=== PATIENT | female | born 1990 | race American Indian/Alaskan Native ===

== ENCOUNTER 2017-05-08 20:17 | Emergency (ER) | payer OTHER ==
[2017-05-08 20:42] VITALS: BP 127/75
== END 2017-05-08 21:13 | disposition left against medical advice (07) ==
LOC: ED 20:17
DX: Z04.3 Encounter for examination and observation following other accident (principal); Z53.21 Procedure and treatment not carried out due to patient leaving prior to being seen by health care provider; V89.2XXA Person injured in unspecified motor-vehicle accident, traffic, initial encounter; Y93.89 Activity, other specified; Y99.8 Other external cause status; Y92.89 Other specified places as the place of occurrence of the external cause

== ENCOUNTER 2019-09-11 11:15 | Emergency (ER) | payer SELFPAY ==
[2019-09-11 11:35] VITALS: BP 134/71
[2019-09-11] MEDS ORDERED: MAGNESIUM SULFATE 0 GM/0 ML BAG IV ONE (16:02)
== END 2019-09-11 11:40 | disposition left against medical advice (07) ==
LOC: ED 11:15
DX: O20.8 Other hemorrhage in early pregnancy (principal); Z53.21 Procedure and treatment not carried out due to patient leaving prior to being seen by health care provider
CPT/HCPCS: J3475

== ENCOUNTER 2020-02-22 11:48 | Inpatient (IN) | payer OTHER ==
[2020-02-22] MEDS ORDERED: TERBUTALINE 1 MG/1 ML INJ SUB-Q PRN (11:49)
[2020-02-22] MEDS ORDERED: LIDOCAINE (2%) 20 MG/1 ML VIAL 20 ML MDV INFILTRATI ONE (11:49)
[2020-02-22] MEDS ORDERED: ACETAMINOPHEN 325 MG TAB PO PRN (11:49)
[2020-02-22] MEDS ORDERED: fentaNYL 100 MCG/2 ML INJ IV PRN (11:49)
[2020-02-22] MEDS ORDERED: NalbUPHINE 10 MG/1 ML INJ IV PRN (11:49)
[2020-02-22] MEDS ORDERED: ePHEDrine SULFATE 50 MG/1 ML INJ IV PRN ×2 (11:49→17:44)
[2020-02-22] MEDS ORDERED: MINERAL OIL 30 ML ORAL LIQD PO PRN (11:49)
[2020-02-22] MEDS ORDERED: OXYTOCIN DRIP 30 UNITS/500 ML BAG IV SCH (12:00)
--- NOTE | 2020-02-22 12:23 | History and Physical Report ---
History of Present Illness Date of examination: 02/22/20 Date of admission: 02/22/20 11:48 Chief complaint: SROM History of present illness: 30 yo, , at 37.3 wks, initiated care with [facility] at 10.5 wks gestation. Her has been complicated by maternal obesity; cigarette smoker; elevated WBC placenta previa (resolved); and Vit D deficiency. She presents to [facility] with reports of leaking fluids since 1100 this am. Reports +FM. Denies VB. Labs: B+, antibody negative; PAP normal; rubella immune; VDRL non-reactive; HBsAg negative; HIV negative; varicella immun; GC/Chlamydia/Trich negative; Vit D 13.9; MSAFP/Multiple markers negative; early 1 hr gtt - 70; 28 wk 1 hr gtt - 119; GBS positive. Past History Past Medical History: no pertinent history Past Surgical History: other (Skin graft - both hands) Family/Genetic History: diabetes (Type II - PGF), hypertension (MGM, PGF, Mother), cancer (Breast Neoplasm - MGM), other (Crohn's disease - Father) Social history: single, smoking (current, every day), full code. denies: alcohol abuse, prescription drug abuse, IV drug use - Obstetrical History Expected Date of Delivery: 03/11/20 Actual Gestation: 37 Week(s) 3 Day(s) : 2 Para: 0 Hx # Term Pregnancies: 0 Number of Pregnancies: 0 Spontaneous Abortions: 1 Induced : 0 Number of Living Children: 0 Medications and Allergies Allergies Allergy/AdvReac Type Severity Reaction Status Date / Time Penicillins Allergy Swelling Verified 02/22/20 12:19 Sulfa (Sulfonamide Allergy Hives Verified 02/22/20 12:19 Antibiotics) Home Medications Medication Instructions Recorded Confirmed Last Taken Type Vitamin 1 tab PO DAILY 02/22/20 02/22/20 02/22/20 History Tylenol 2 tab PO PRN PRN 02/22/20 02/22/20 02/21/20 History Active Meds: Active Medications Acetaminophen (Tylenol) 650 mg PO Q4H PRN PRN Reason: Pain, Mild (1-3) Ephedrine Sulfate (Ephedrine Sulfate) 10 mg IV Q2M PRN PRN Reason: Hypotension Fentanyl (Sublimaze) 100 mcg IV Q2H PRN PRN Reason: Pain,Severe (7-10) LABOR PAIN Oxytocin/Sodium Chloride (Pitocin/Ns 20 Unit/1000ml Drip) 20 units in 1,000 mls @ 125 mls/hr IV DIRECT SO Oxytocin/Sodium Chloride (Pitocin/Ns 30 Unit/500ml) 30 units in 500 mls @ 2 mls/hr IV TITR SO; Protocol Lactated Ringer's (Lactated Ringers) 1,000 mls @ 125 mls/hr IV DIRECT OS Cefazolin Sodium 2 gm/ Sodium (Chloride) 100 mls @ 200 mls/hr IV ONCE ONE; Protocol Stop: 02/22/20 12:18 Cefazolin Sodium (Ancef/Ns 1 Gm/50 Ml) 1 gm in 50 mls @ 100 mls/hr IV Q8HR SO; Protocol Lidocaine (Xylocaine 2%) 20 ml INFILTRATI ONCE ONE Stop: 02/22/20 11:50 Mineral Oil (Mineral Oil) 30 ml PO QHS PRN PRN Reason: Constipation Nalbuphine HCl (Nalbuphine) 10 mg IV Q2H PRN PRN Reason: Pain, Moderate (4-6) Ondansetron HCl (Zofran) 4 mg IV Q8H PRN PRN Reason: Nausea And Vomiting Terbutaline Sulfate (Brethine) 0.25 mg SUB-Q ONCE PRN PRN Reason: Hyperstimulation/Hypertonicity Review of Systems All systems: negative Genitourinary: leakage of fluid (since 1100 today) - Physical Exam Breasts: Positive: normal Cardiovascular: Regular rate Lungs: Positive: Normal air movement Abdomen: Positive: soft, other (gravid) Vagina: Positive: other (grossly ruptured, clear fluids) Uterus: Positive: enlarged (S=D) - Obstetrical FHR: category 1 Uterine Contraction Monitor Mode: External Cervical Dilatation: 2 (per RN) Cervical Effacement Percentage: 50 station: -2 Uterine Contraction Frequency (min): 5-7 Uterine Contraction Pattern: Irregular Uterine Tone Measurement Phase: Resting Uterine Contraction Intensity: Mild Results All other labs normal. Assessment and Plan - Patient Problems (1) SROM (spontaneous rupture of membranes) Current Visit: Yes Status: Acute Plan to address problem: Admit to L & D Initiate Cytotec 50mg po q 4hrs Pain meds as ordered Anticipate (2) Maternal obesity affecting , antepartum Current Visit: Yes Status: Acute (3) Cigarette smoker Current Visit: Yes Status: Acute
[2020-02-22] MEDS ORDERED: miSOPROStol 25 MCG TAB PO PRN (12:44)
[2020-02-22 13:14] LABS: Hematocrit 33.8 % (30.3-42.9); Hemoglobin 11.4 gm/dl (10.1-14.3); Mean Corpuscular HGB Conc 34 % (30-34); Mean Corpuscular Volume 89 fl (79-97); Platelet Count 255 K/mm3 (140-440); Red Blood Count 3.82 M/mm3 (3.65-5.03); Red Cell Distribution Width 14.1 % (13.2-15.2)
[2020-02-22] MEDS: LACTATED RINGERS 1,000 ML IV SCH (13:38)
[2020-02-22] MEDS: ONDANSETRON 4 MG/2 ML INJ IV PRN ×2 (14:07→15:05)
[2020-02-22] MEDS ORDERED: BUTORPHANOL 2 MG/1 ML INJ IV PRN (15:08)
[2020-02-22] MEDS ORDERED: BUTORPHANOL 2 MG/1 ML INJ ONE (15:08)
--- NOTE | 2020-02-22 16:43 | Progress Note ---
Assessment and Plan - Patient Problems (1) SROM (spontaneous rupture of membranes) Current Visit: Yes Status: Acute Plan to address problem: Admit to L & D Continue Cytotec 50mg po q 4hrs x 3 doses Epidural placement Anticipate (2) Maternal obesity affecting , antepartum Current Visit: Yes Status: Acute (3) Cigarette smoker Current Visit: Yes Status: Acute Subjective - Subjective Date of service: 02/22/20 Principal diagnosis: SROM Interval history: 30 yo, , at 37.3 wks, initiated care with [facility] at 10.5 wks gestation. Her has been complicated by maternal obesity; cigarette smoker; elevated WBC placenta previa (resolved); and Vit D deficiency. She presents to [facility] with reports of leaking fluids since 1100 this am. Reports +FM. Denies VB. Labs: B+, antibody negative; PAP normal; rubella immune; VDRL non-reactive; HBsAg negative; HIV negative; varicella immun; GC/Chlamydia/Trich negative; Vit D 13.9; MSAFP/Multiple markers negative; early 1 hr gtt - 70; 28 wk 1 hr gtt - 119; GBS positive. Patient reports: new complaints (requesting epidural, IV pain meds not working), loss of fluid, movement normal, contractions (painful ctxs) Objective - Vital Signs Vital Signs: Vital Signs - 12hr 02/22/20 02/22/20 02/22/20 12:12 12:13 12:17 Temperature Pulse Rate 91 H 93 H 100 H Respiratory Rate Blood Pressure 120/71 Blood Pressure [Right] O2 Sat by Pulse 98 98 Oximetry 02/22/20 02/22/20 02/22/20 12:22 12:25 12:27 Temperature Pulse Rate 100 H 103 H 109 H Respiratory Rate Blood Pressure Blood Pressure [Right] O2 Sat by Pulse 99 93 98 Oximetry 02/22/20 02/22/20 02/22/20 12:32 12:37 12:42 Temperature Pulse Rate 94 H 111 H 103 H Respiratory Rate Blood Pressure Blood Pressure [Right] O2 Sat by Pulse 98 98 97 Oximetry 02/22/20 02/22/20 02/22/20 12:47 12:52 12:57 Temperature Pulse Rate 100 H 105 H 91 H Respiratory Rate Blood Pressure Blood Pressure [Right] O2 Sat by Pulse 98 97 98 Oximetry 02/22/20 02/22/20 02/22/20 13:02 13:07 13:12 Temperature Pulse Rate 91 H 94 H 96 H Respiratory Rate Blood Pressure Blood Pressure [Right] O2 Sat by Pulse 98 97 98 Oximetry 02/22/20 02/22/20 02/22/20 13:15 13:17 13:22 Temperature 98.0 F Pulse Rate 90 96 H 97 H Respiratory 20 Rate Blood Pressure 133/62 Blood Pressure 133/62 [Right] O2 Sat by Pulse 99 99 98 Oximetry 02/22/20 02/22/20 02/22/20 13:27 13:38 13:43 Temperature Pulse Rate 103 H 116 H 104 H Respiratory Rate Blood Pressure Blood Pressure [Right] O2 Sat by Pulse 99 98 98 Oximetry 02/22/20 02/22/20 02/22/20 13:48 13:53 13:58 Temperature Pulse Rate 104 H 114 H 95 H Respiratory Rate Blood Pressure Blood Pressure [Right] O2 Sat by Pulse 98 98 100 Oximetry 02/22/20 02/22/20 02/22/20 14:03 14:08 14:13 Temperature Pulse Rate 146 H 127 H 109 H Respiratory Rate Blood Pressure Blood Pressure [Right] O2 Sat by Pulse 98 97 99 Oximetry 02/22/20 02/22/20 02/22/20 14:18 14:22 14:23 Temperature Pulse Rate 102 H 119 H 95 H Respiratory Rate Blood Pressure Blood Pressure [Right] O2 Sat by Pulse 95 92 99 Oximetry 02/22/20 02/22/20 02/22/20 14:28 14:33 14:38 Temperature Pulse Rate 120 H 95 H 118 H Respiratory Rate Blood Pressure Blood Pressure [Right] O2 Sat by Pulse 97 100 95 Oximetry - Exam Breasts: deferred Cardiovascular: Regular rate Lungs: Normal air movement Abdomen: Present: other FHR: category 1 Uterine Contraction Monitor Mode: External Cervical Dilatation: 3 (per RN) Cervical Effacement Percentage: 80 station: -2 Uterine Contraction Frequency (min): 2-3 Uterine Contraction Pattern: Irregular Uterine Tone Measurement Phase: Resting Uterine Contraction Intensity: Moderate Extremities: normal Deep Tendon Reflex Grade: Normal +2 - Labs Labs: Abnormal Labs 02/22/20 13:00 WBC 14.4 H Laboratory Results - last 24 hr 02/22/20 02/22/20 13:00 13:00 WBC 14.4 H RBC 3.82 Hgb 11.4 Hct 33.8 MCV 89 MCH 30 MCHC 34 RDW 14.1 Plt Count 255 Blood Type B POSITIVE Antibody Screen Negative
[2020-02-22] MEDS ORDERED: NALOXONE 2 MG/2 ML INJ IV PRN (17:44)
--- NOTE | 2020-02-22 17:45 | Anesthesia Consultation ---
Anesthesia Consult and Med Hx Date of service: 02/22/20 - Airway Anesthetic Teeth Evaluation: Good ROM Head & Neck: Adequate Mental/Hyoid Distance: Adequate Mallampati Class: Class II Intubation Access Assessment: Probably Good - Pulmonary Exam CTA: Yes - Cardiac Exam Cardiac Exam: RRR - Pre-Operative Health Status ASA Pre-Surgery Classification: ASA3 Proposed Anesthetic Plan: Epidural - Pulmonary Hx Smoking: Yes Hx Asthma: No - Cardiovascular System Hx Hypertension: No - Central Nervous System Hx Seizures: No Hx Psychiatric Problems: No - Endocrine Hx Renal Disease: No Hx Hypothyroidism: No Hx Hyperthyroidism: No - Hematic Hx Anemia: Yes Hx Sickle Cell Disease: No - Other Systems Hx Alcohol Use: No Hx Obesity: Yes
--- NOTE | 2020-02-22 17:48 | Progress Note ---
Labor Epidural - Labor Epidural Start Time: 16:45 Stop Time: 17:02 Performed by:: DEANA BRO Procedure: Patient is requesting epidural for labor pain. H&P, and labs reviewed. Procedure explained, questions answered, consent obtained. Patient in sitting position with blood pressure cuff and pulse ox on and working. Timeout performed immediately before start of procedure. Sterile betadine prep/drape. 3 mL 1% lidocaine skin wheal at L[3]-L[4]. 18-gauge Touhy epidural needle advanced to [id number] with saline at 10 cm. Epidural dexmedetomidine [30] mcg administered. Epidural catheter advanced to 15 cm, negative aspiration for blood and csf, negative test dose 3 ml 1.5% lidocaine with epinephrine. Sterile steri-strips and tegaderm applied, followed by tape reinforcement. Patient tolerated procedure well.
[2020-02-22] MEDS ORDERED: fentaNYL-BUPIV 2 MCG/ML-0.125% 200 MCG/100 ML BAG EPIDURAL SCH (18:00)
[2020-02-22] MEDS: OXYTOCIN 20 UNIT/1000ML DRIP 20 UNITS/1,000 ML BAG IV SCH ×2 (19:05→20:06)
--- NOTE | 2020-02-22 19:34 | Progress Note ---
Subjective Principal diagnosis: SROM Interval history: Spontaneous vaginal delivery without episiotomy under epidural anesthesia. Healthy female APGARS 8/9 weighing 2169 grams. Placenta was spontaneous, intact, grossly normal. 1st degree perineal laceration repaired with 3-0 Vicryl. EBL 200 ml Objective - Constitutional Vitals: Vital Signs - 12hr 02/22/20 02/22/20 02/22/20 12:12 12:13 12:17 Temperature Pulse Rate 91 H 93 H 100 H Respiratory Rate Blood Pressure 120/71 Blood Pressure [Right] O2 Sat by Pulse 98 98 Oximetry 02/22/20 02/22/20 02/22/20 12:22 12:25 12:27 Temperature Pulse Rate 100 H 103 H 109 H Respiratory Rate Blood Pressure Blood Pressure [Right] O2 Sat by Pulse 99 93 98 Oximetry 02/22/20 02/22/20 02/22/20 12:32 12:37 12:42 Temperature Pulse Rate 94 H 111 H 103 H Respiratory Rate Blood Pressure Blood Pressure [Right] O2 Sat by Pulse 98 98 97 Oximetry 02/22/20 02/22/20 02/22/20 12:47 12:52 12:57 Temperature Pulse Rate 100 H 105 H 91 H Respiratory Rate Blood Pressure Blood Pressure [Right] O2 Sat by Pulse 98 97 98 Oximetry 02/22/20 02/22/20 02/22/20 13:02 13:07 13:12 Temperature Pulse Rate 91 H 94 H 96 H Respiratory Rate Blood Pressure Blood Pressure [Right] O2 Sat by Pulse 98 97 98 Oximetry 02/22/20 02/22/20 02/22/20 13:15 13:17 13:22 Temperature 98.0 F Pulse Rate 90 96 H 97 H Respiratory 20 Rate Blood Pressure 133/62 Blood Pressure 133/62 [Right] O2 Sat by Pulse 99 99 98 Oximetry 02/22/20 02/22/20 02/22/20 13:27 13:38 13:43 Temperature Pulse Rate 103 H 116 H 104 H Respiratory Rate Blood Pressure Blood Pressure [Right] O2 Sat by Pulse 99 98 98 Oximetry 02/22/20 02/22/20 02/22/20 13:48 13:53 13:58 Temperature Pulse Rate 104 H 114 H 95 H Respiratory Rate Blood Pressure Blood Pressure [Right] O2 Sat by Pulse 98 98 100 Oximetry 02/22/20 02/22/20 02/22/20 14:03 14:08 14:13 Temperature Pulse Rate 146 H 127 H 109 H Respiratory Rate Blood Pressure Blood Pressure [Right] O2 Sat by Pulse 98 97 99 Oximetry 02/22/20 02/22/20 02/22/20 14:18 14:22 14:23 Temperature Pulse Rate 102 H 119 H 95 H Respiratory Rate Blood Pressure Blood Pressure [Right] O2 Sat by Pulse 95 92 99 Oximetry 02/22/20 02/22/20 02/22/20 14:28 14:33 14:38 Temperature Pulse Rate 120 H 95 H 118 H Respiratory Rate Blood Pressure Blood Pressure [Right] O2 Sat by Pulse 97 100 95 Oximetry 02/22/20 02/22/20 02/22/20 16:44 16:45 16:47 Temperature Pulse Rate 91 H 114 H 104 H Respiratory Rate Blood Pressure 127/77 Blood Pressure [Right] O2 Sat by Pulse 97 81 L Oximetry 02/22/20 02/22/20 02/22/20 16:49 16:50 16:54 Temperature Pulse Rate 113 H 76 85 Respiratory Rate Blood Pressure 127/65 134/71 Blood Pressure [Right] O2 Sat by Pulse 95 Oximetry 02/22/20 02/22/20 02/22/20 16:55 17:00 17:05 Temperature Pulse Rate 105 H 107 H 111 H Respiratory Rate Blood Pressure 130/69 129/86 Blood Pressure [Right] O2 Sat by Pulse 98 97 98 Oximetry 02/22/20 02/22/20 02/22/20 17:08 17:10 17:15 Temperature Pulse Rate 129 H 144 H 101 H Respiratory Rate Blood Pressure Blood Pressure [Right] O2 Sat by Pulse 70 L 85 100 Oximetry 02/22/20 02/22/20 02/22/20 17:20 17:25 17:29 Temperature Pulse Rate 100 H 108 H 114 H Respiratory Rate Blood Pressure 114/57 Blood Pressure [Right] O2 Sat by Pulse 100 100 Oximetry 02/22/20 02/22/20 02/22/20 17:30 17:31 17:35 Temperature Pulse Rate 109 H 114 H 92 H Respiratory Rate Blood Pressure 103/66 Blood Pressure [Right] O2 Sat by Pulse 99 79 L 99 Oximetry 02/22/20 02/22/20 02/22/20 17:40 17:45 17:50 Temperature Pulse Rate 103 H 108 H 98 H Respiratory Rate Blood Pressure 109/67 111/61 Blood Pressure [Right] O2 Sat by Pulse 97 100 Oximetry 02/22/20 02/22/20 02/22/20 17:56 17:59 18:04 Temperature Pulse Rate 91 H 112 H 111 H Respiratory Rate Blood Pressure 144/113 120/76 94/53 Blood Pressure [Right] O2 Sat by Pulse Oximetry 02/22/20 02/22/20 02/22/20 18:10 18:14 18:19 Temperature Pulse Rate 110 H 93 H 104 H Respiratory Rate Blood Pressure 121/64 109/54 111/55 Blood Pressure [Right] O2 Sat by Pulse Oximetry 02/22/20 02/22/20 02/22/20 18:21 18:24 18:30 Temperature Pulse Rate 119 H 54 L 102 H Respiratory Rate Blood Pressure 113/59 127/82 Blood Pressure [Right] O2 Sat by Pulse 98 Oximetry 02/22/20 02/22/20 02/22/20 18:34 18:39 18:44 Temperature Pulse Rate 100 H 89 96 H Respiratory Rate Blood Pressure 103/55 105/57 106/57 Blood Pressure [Right] O2 Sat by Pulse Oximetry 02/22/20 02/22/20 02/22/20 18:50 18:54 19:09 Temperature Pulse Rate 111 H 99 H 107 H Respiratory Rate Blood Pressure 111/64 107/51 88/50 Blood Pressure [Right] O2 Sat by Pulse Oximetry 02/22/20 02/22/20 02/22/20 19:14 19:19 19:24 Temperature Pulse Rate 100 H 94 H 101 H Respiratory Rate Blood Pressure 89/49 88/54 91/55 Blood Pressure [Right] O2 Sat by Pulse Oximetry - Labs CBC & Chem 7: 02/22/20 13:00 Labs: Abnormal lab results 02/22/20 Range/Units 13:00 WBC 14.4 H (4.5-11.0) K/mm3 Medications & Allergies - Medications Allergies/Adverse Reactions: Allergies Penicillins Allergy (Verified 02/22/20 12:19) Swelling Throat itching ans swelling Sulfa (Sulfonamide Antibiotics) Allergy (Verified 02/22/20 12:19) Hives Home Medications: Home Medications Medication Instructions Recorded Confirmed Last Taken Type Vitamin 1 tab PO DAILY 02/22/20 02/22/20 02/22/20 History Tylenol 2 tab PO PRN PRN 02/22/20 02/22/20 02/21/20 History Active Medications: Generic Name Dose Route Start Last Admin Trade Name Jonathanq PRN Reason Stop Dose Admin Acetaminophen 650 mg 02/22/20 11:49 Tylenol PO Q4H PRN Pain, Mild (1-3) Butorphanol Tartrate 2 mg 02/22/20 15:08 02/22/20 15:10 Stadol IV 2 mg Q2H PRN Administration Labor Pain Ephedrine Sulfate 10 mg 02/22/20 11:49 Ephedrine Sulfate IV Q2M PRN Hypotension Ephedrine Sulfate 10 mg 02/22/20 17:44 Ephedrine Sulfate IV Q2M PRN Hypotension Fentanyl 100 mcg 02/22/20 11:49 02/22/20 14:03 Sublimaze IV 100 mcg Q2H PRN Administration Pain,Severe (7-10) LABOR PAIN Oxytocin/Sodium Chloride 20 units in 1,000 mls @ 125 mls/hr 02/22/20 12:00 Pitocin/Ns 20 Unit/1000ml Drip IV DIRECT SO Lactated Ringer's 1,000 mls @ 125 mls/hr 02/22/20 12:00 02/22/20 13:38 Lactated Ringers IV 125 mls/hr DIRECT SO Administration Cefazolin Sodium 1 gm in 50 mls @ 100 mls/hr 02/22/20 20:00 Ancef/Ns 1 Gm/50 Ml IV Q8HR SO Protocol Fentanyl/Bupivacaine/Sodium Chlor 200 mcg in 100 mls @ 12 mls/hr 02/22/20 18:00 02/22/20 17:58 Fentanyl-Bupiv 2 Mcg/Ml-0.125% EPIDURAL 12 mls/hr TITR SO Administration Protocol Mineral Oil 30 ml 02/22/20 11:49 Mineral Oil PO QHS PRN Constipation Misoprostol 50 mcg 02/22/20 12:44 02/22/20 13:54 Cytotec PO 50 mcg Q4H PRN Administration Labor augmentation Nalbuphine HCl 10 mg 02/22/20 11:49 Nalbuphine IV Q2H PRN Pain, Moderate (4-6) Naloxone HCl 0.2 mg 02/22/20 17:44 Naloxone IV Q5M PRN Respiratory sedation Ondansetron HCl 4 mg 02/22/20 11:49 02/22/20 15:05 Zofran IV 4 mg Q8H PRN Administration Nausea And Vomiting Terbutaline Sulfate 0.25 mg 02/22/20 11:49 Brethine SUB-Q ONCE PRN Hyperstimulation/Hypertonicity
[2020-02-22] MEDS ORDERED: diphenhydrAMINE 25 MG CAP PO PRN (19:35)
[2020-02-22] MEDS ORDERED: LANOLIN/ZINC/DIMETHICONE (LANSINOH) 7 GM TP PRN (19:35)
[2020-02-22] MEDS ORDERED: PROMETHAZINE 25 MG RECT SUPP PR PRN (19:35)
[2020-02-22] MEDS ORDERED: MAGNESIUM HYDROXIDE (MOM) ORAL LIQD UDC PO PRN (19:35)
[2020-02-22] MEDS ORDERED: PROMETHAZINE 25 MG TAB PO PRN (19:35)
[2020-02-22] MEDS ORDERED: ONDANSETRON 4 MG/2 ML INJ IV PRN (19:35)
[2020-02-22] MEDS: IBUPROFEN 600 MG TAB PO SCH (20:05)
[2020-02-22] MEDS: WITCH HAZEL/ GLYCERIN PAD TP PRN (21:52)
[2020-02-22] MEDS: ceFAZolin/NS 1 GM/50 ML 1 GM/50 ML BAG IV SCH ×2 (21:53→23:12)
[2020-02-22] MEDS: HYDROcodone/ACETAMINOPHEN 5-325 MG TAB PO PRN (22:01)
[2020-02-23] MEDS: ceFAZolin/NS 1 GM/50 ML 1 GM/50 ML BAG IV SCH (05:41)
[2020-02-23] MEDS: HYDROcodone/ACETAMINOPHEN 5-325 MG TAB PO PRN (05:42)
[2020-02-23] MEDS: IBUPROFEN 600 MG TAB PO SCH ×4 (06:10→20:34)
--- NOTE | 2020-02-23 09:07 | Post Anesthesia Evaluation ---
- Post Anesthesia Evaluation Patient Participated: Yes Airway Patent: Yes Stable Respiratory Function: Yes Nausea/Vomiting: No Temp > 96.8F: Yes Pain Manageable: Yes Adequeate Hydration: Yes Anesthesia Complications: Yes (PDPH being treated with fiorcet and neostigmine/atropine) Block Receding Appropriately: Yes
[2020-02-23] MEDS: BUTALB/ACETAMINOPHEN/CAFFEINE TAB PO PRN ×3 (09:31→20:46)
[2020-02-23] MEDS: PRENATAL VIT27-FE FUMARATE-FOLIC ACID VIT TAB PO SCH (10:22)
[2020-02-23] MEDS: NEOSTIGMINE 2 MG, ATROPINE 1 MG in SODIUM CHLORIDE 0.9% 100 ML IV SCH ×2 (10:23→19:50)
[2020-02-23] MEDS: LACTATED RINGERS 1,000 ML IV SCH (10:23)
--- NOTE | 2020-02-23 10:53 | Progress Note ---
Assessment and Plan A: PP Day #1 Epidural Head and Neck Pain P: Follow Routine Orders Anesthesia management of SWANSON (Fioricet & Atropine) Subjective - Subjective Date of service: 02/23/20 Principal diagnosis: SROM Patient reports: appetite normal, voiding normally, pain poorly controlled (Reports of Epidural SWANSON with Intense Neck Pain, Rates Pain 10/10), ambulating normally Gilliam: doing well, bottle feeding Objective - Vital Signs Latest vital signs: Vital Signs Temp Pulse Resp BP BP Pulse Ox 02/23/20 08:10 98.1 F 69 18 96/52 95 02/23/20 06:42 18 02/23/20 05:42 18 02/23/20 05:13 18 02/23/20 04:13 18 02/22/20 23:01 18 02/22/20 22:01 18 02/22/20 21:05 18 02/22/20 21:02 98.6 F 75 18 119/73 96 02/22/20 20:13 98 F 98 H 22 115/65 97 02/22/20 20:04 86 115/65 02/22/20 19:29 111 H 144/63 02/22/20 19:24 101 H 91/55 02/22/20 19:19 94 H 88/54 02/22/20 19:14 100 H 89/49 02/22/20 19:09 107 H 88/50 02/22/20 18:54 99 H 107/51 02/22/20 18:50 111 H 111/64 02/22/20 18:44 96 H 106/57 02/22/20 18:39 89 105/57 02/22/20 18:34 100 H 103/55 02/22/20 18:30 102 H 127/82 02/22/20 18:24 54 L 113/59 02/22/20 18:21 119 H 98 02/22/20 18:19 104 H 111/55 02/22/20 18:14 93 H 109/54 02/22/20 18:10 110 H 121/64 02/22/20 18:04 111 H 94/53 02/22/20 17:59 112 H 120/76 02/22/20 17:56 91 H 144/113 02/22/20 17:50 98 H 111/61 02/22/20 17:45 108 H 100 02/22/20 17:40 103 H 109/67 97 02/22/20 17:35 92 H 103/66 99 02/22/20 17:31 114 H 79 L 02/22/20 17:30 109 H 99 02/22/20 17:29 114 H 114/57 02/22/20 17:25 108 H 100 02/22/20 17:20 100 H 100 02/22/20 17:15 101 H 100 02/22/20 17:10 144 H 85 02/22/20 17:08 129 H 70 L 02/22/20 17:05 111 H 129/86 98 02/22/20 17:00 107 H 130/69 97 02/22/20 16:55 105 H 98 02/22/20 16:54 85 134/71 02/22/20 16:50 76 95 02/22/20 16:49 113 H 127/65 02/22/20 16:47 104 H 81 L 02/22/20 16:45 114 H 97 02/22/20 16:44 91 H 127/77 02/22/20 14:38 118 H 95 02/22/20 14:33 95 H 100 02/22/20 14:28 120 H 97 02/22/20 14:23 95 H 99 02/22/20 14:22 119 H 92 02/22/20 14:18 102 H 95 02/22/20 14:13 109 H 99 02/22/20 14:08 127 H 97 02/22/20 14:03 146 H 98 02/22/20 13:58 95 H 100 02/22/20 13:53 114 H 98 02/22/20 13:48 104 H 98 02/22/20 13:43 104 H 98 02/22/20 13:38 116 H 98 02/22/20 13:27 103 H 99 02/22/20 13:22 97 H 98 02/22/20 13:17 96 H 99 02/22/20 13:15 98.0 F 90 20 133/62 133/62 99 02/22/20 13:12 96 H 98 02/22/20 13:07 94 H 97 02/22/20 13:02 91 H 98 02/22/20 12:57 91 H 98 02/22/20 12:52 105 H 97 02/22/20 12:47 100 H 98 02/22/20 12:42 103 H 97 02/22/20 12:37 111 H 98 02/22/20 12:32 94 H 98 02/22/20 12:27 109 H 98 02/22/20 12:25 103 H 93 02/22/20 12:22 100 H 99 02/22/20 12:17 100 H 98 02/22/20 12:13 93 H 120/71 02/22/20 12:12 91 H 98 Intake and Output 02/22/20 02/23/20 02/23/20 22:59 06:59 14:59 Intake Total 1177.083 720 480 Output Total 1000 Balance 1177.083 -280 480 Intake: IV 1177.083 ANCEF/NS 1 GM/50 ML 1 gm 50 In 50 ml @ 100 mls/hr IV Q8HR SO Rx#:[id number] Lactated Ringers 1,000 ml 1000 @ 125 mls/hr IV DIRECT SO Rx#:[id number] PITOCin/NS 20 UNIT/1000ML 127.083 DRIP 20 units In 1,000 ml @ 125 mls/hr IV DIRECT SO Rx#:[id number] Oral 720 480 Output: Urine 1000 Void 1000 Other: Total, Intake Amount 480 240 Total, Output Amount 500 Estimated Blood Loss 200 - Exam Breasts: Present: normal Cardiovascular: Present: Regular rate Lungs: Present: Clear to auscultation, Normal air movement Abdomen: Present: normal appearance, soft, normal bowel sounds Uterus: Present: normal, firm, fundal height below umbilicus Extremities: Present: normal - Labs Labs: Abnormal lab results 02/22/20 Range/Units 13:00 WBC 14.4 H (4.5-11.0) K/mm3
[2020-02-23 11:24] LABS: Hematocrit 29.3 % (30.3-42.9)
[2020-02-23] MEDS ORDERED: MEASLES, MUMPS & RUBELLA 12,500 UNIT/0.5 ML VACCINE SUB-Q ONE (19:35)
[2020-02-23] MEDS ORDERED: DIPHtheria,PERTUSSIS(ACELL),TETANUS VACCINE/PF 0.5 ML VIAL IM ONE (19:37)
--- NOTE | 2020-02-23 21:59 | Post Anesthesia Evaluation ---
- Post Anesthesia Evaluation Other Comments: Resolution of PDPH with medical treatment. C/o intermittent shooting pain down arms. No arm/hand weakness. Thinks it is caused by epidural. Explained that lumbar epidural unable to cause these symptoms. Most likely due to position and muscle straining/stiffness during labor. Advised anti-inflammatories and muscle relaxants to help as well as hot compresses to relax muscles which are irritating the nerves. Follow up with OB or family MD for consult if it does not resolve.
[2020-02-24] MEDS ORDERED: NEOSTIGMINE 2 MG, ATROPINE 1 MG in SODIUM CHLORIDE 0.9% 100 ML IV SCH (02:00)
[2020-02-24] MEDS: IBUPROFEN 600 MG TAB PO SCH ×4 (02:49→19:23)
[2020-02-24] MEDS: BUTALB/ACETAMINOPHEN/CAFFEINE TAB PO PRN (06:03)
[2020-02-24] MEDS: PRENATAL VIT27-FE FUMARATE-FOLIC ACID VIT TAB PO SCH (10:48)
--- NOTE | 2020-02-24 12:21 | Progress Note ---
Assessment and Plan A: PP Day #2 Neck Pain P: Follow Routine Orders Consult Dr. Corral about Neck Pain Control Subjective - Subjective Date of service: 02/24/20 Principal diagnosis: SROM Patient reports: appetite normal, voiding normally, pain well controlled, flatus, bowel movement, ambulating normally, other (States her SWANSON has resolved; but still having intense shooting Neck Pains; states she needs pain control beyound Motrin and also thinks she needs a MRI) Dougherty: doing well, bottle feeding Objective - Vital Signs Latest vital signs: Vital Signs Temp Pulse Resp BP BP Pulse Ox 02/24/20 08:10 98.2 F 61 20 111/58 02/24/20 07:03 18 02/24/20 06:11 63 18 112/60 99 02/24/20 06:03 18 02/24/20 03:49 18 02/24/20 02:49 18 02/24/20 01:00 98.6 F 61 113/62 99 02/23/20 21:46 18 02/23/20 20:46 18 02/23/20 20:34 18 02/23/20 19:48 98.6 F 90 18 123/63 98 02/23/20 16:25 98.4 F 64 18 128/54 99 Intake and Output 02/23/20 02/24/20 02/24/20 22:59 06:59 14:59 Intake Total 480 120 Balance 480 120 Intake: Oral 480 120 Other: Total, Intake Amount 240 120 # Voids Void 1 1 1 - Exam Breasts: Present: normal Cardiovascular: Present: Regular rate Lungs: Present: Clear to auscultation, Normal air movement Abdomen: Present: normal appearance, soft, normal bowel sounds Uterus: Present: normal, firm, fundal height below umbilicus Extremities: Present: normal
--- NOTE | 2020-02-24 15:55 | Consultation ---
History of Present Illness - Reason for Consult Consult date: 02/24/20 Neck pain - History of Present Illness Patient is a 30-year-old obese -[place] female with no known medical conditions delivered a baby 2 days ago and a medical consult was requested for evaluation of her neck pain. She complains of severe pain in the nape of her neck for the past 2 days since delivery. She describes the pain as shooting sharp constant pain and associated with some headache. She denies any nausea, vomiting, fever or chills. Pain is localized. She denies any weakness or numbness in the arms or legs. Past History Past Medical History: No medical history Past Surgical History: No surgical history Social history: single, smoking (current, every day), full code. denies: alcohol abuse, prescription drug abuse, IV drug use Medications and Allergies Allergies Allergy/AdvReac Type Severity Reaction Status Date / Time Penicillins Allergy Swelling Verified 02/22/20 12:19 Sulfa (Sulfonamide Allergy Hives Verified 02/22/20 12:19 Antibiotics) Home Medications Medication Instructions Recorded Confirmed Last Taken Type Vitamin 1 tab PO DAILY 02/22/20 02/22/20 02/22/20 History Tylenol 2 tab PO PRN PRN 02/22/20 02/22/20 02/21/20 History Active Meds: Active Medications Acetaminophen (Tylenol) 650 mg PO Q4H PRN PRN Reason: Pain MILD(1-3)/Fever >100.5/SWANSON Acetaminophen/Butalbital/Caffeine (Fioricet) 2 tab PO Q4H PRN PRN Reason: Headache Last Admin: 02/24/20 06:03 Dose: 2 tab Documented by: Acetaminophen/Hydrocodone Bitart ([place] 5/325) 1 each PO Q4H PRN PRN Reason: Pain, Moderate (4-6) Bisacodyl (Dulcolax) 10 mg SD BID PRN PRN Reason: Constipation Butorphanol Tartrate (Stadol) 2 mg IV Q2H PRN PRN Reason: Labor Pain Last Admin: 02/22/20 15:10 Dose: 2 mg Documented by: Diazepam (Valium) 2 mg PO Q12H SO Stop: 02/26/20 15:59 Diphenhydramine HCl (Benadryl) 25 mg PO Q6H PRN PRN Reason: Itching Ephedrine Sulfate (Ephedrine Sulfate) 10 mg IV Q2M PRN PRN Reason: Hypotension Fentanyl (Sublimaze) 100 mcg IV Q2H PRN PRN Reason: Pain,Severe (7-10) LABOR PAIN Last Admin: 02/22/20 14:03 Dose: 100 mcg Documented by: Oxytocin/Sodium Chloride (Pitocin/Ns 20 Unit/1000ml Drip) 20 units in 1,000 mls @ 125 mls/hr IV DIRECT SO Last Admin: 02/22/20 20:06 Dose: 125 mls/hr Documented by: Lactated Ringer's (Lactated Ringers) 1,000 mls @ 125 mls/hr IV DIRECT SO Last Admin: 02/23/20 10:23 Dose: 125 mls/hr Documented by: Fentanyl/Bupivacaine/Sodium Chlor (Fentanyl-Bupiv 2 Mcg/Ml-0.125%) 200 mcg in 100 mls @ 12 mls/hr EPIDURAL TITR SO; Protocol Last Admin: 02/22/20 17:58 Dose: 12 mls/hr Documented by: Neostigmine Methylsulfate 2 mg / Atropine Sulfate 1 mg/Sodium Chloride 103 mls @ 206 mls/hr IV Q8H [facility] Last Admin: 02/24/20 06:04 Dose: 206 mls/hr Documented by: Ibuprofen (Ibuprofen) 600 mg PO Q6H [facility] Last Admin: 02/24/20 08:06 Dose: 600 mg Documented by: Lidocaine (Lidoderm 5%) 1 each TD QDAY [facility] Stop: 02/26/20 15:59 Magnesium Hydroxide (Milk Of Magnesia) 30 ml PO HS PRN PRN Reason: Constipation Methocarbamol (Robaxin) 750 mg PO Q8H PRN PRN Reason: Muscle Spasm Last Admin: 02/23/20 22:33 Dose: 750 mg Documented by: Mineral Oil (Mineral Oil) 30 ml PO QHS PRN PRN Reason: Constipation Misoprostol (Cytotec) 50 mcg PO Q4H PRN PRN Reason: Labor augmentation Last Admin: 02/22/20 13:54 Dose: 50 mcg Documented by: Multi-Ingredient Ointment (Lansinoh) 1 applic TP PRN PRN PRN Reason: Sore Nipples Multivitamins/Iron/Calcium ( Vitamin) 1 each PO QDAY [facility] Last Admin: 02/24/20 10:48 Dose: 1 each Documented by: Nalbuphine HCl (Nalbuphine) 10 mg IV Q2H PRN PRN Reason: Pain, Moderate (4-6) Naloxone HCl (Naloxone) 0.2 mg IV Q5M PRN PRN Reason: Respiratory sedation Ondansetron HCl (Zofran) 4 mg IV Q8H PRN PRN Reason: Nausea And Vomiting Last Admin: 02/22/20 15:05 Dose: 4 mg Documented by: Ondansetron HCl (Zofran) 4 mg IV Q8H PRN PRN Reason: Nausea And Vomiting Promethazine HCl (Phenergan) 25 mg SD Q6H PRN PRN Reason: Nausea And Vomiting Promethazine HCl (Phenergan) 25 mg PO Q6H PRN PRN Reason: Nausea And Vomiting Sodium Chloride (Sodium Chloride Flush Syringe 10 Ml) 10 ml IV PRN NR Stop: 02/25/20 19:59 Terbutaline Sulfate (Brethine) 0.25 mg SUB-Q ONCE PRN PRN Reason: Hyperstimulation/Hypertonicity Witch Kelsey/Glycerin (Tucks Pad) 1 each TP PRN PRN PRN Reason: Hemorrhoid/cleansing/soothing Last Admin: 02/22/20 21:52 Dose: 1 each Documented by: Review of Systems Constitutional: no weight loss, no fever, no chills, no weakness Ears, nose, mouth and throat: headache, no ear pain, no nasal congestion, no dysphagia, no vertigo Cardiovascular: no chest pain, no palpitations, no syncope, no lightheadedness, no shortness of breath, no high blood pressure Gastrointestinal: no abdominal pain, no nausea, no vomiting, no diarrhea, no constipation, no melena Genitourinary Female: no dysuria, no nocturia Rectal: no pain Musculoskeletal: neck pain, no shooting arm pain, no arm numbness/tingling, no low back pain, no shooting leg pain, no leg numbness/tingling Integumentary: no rash Neurological: headaches, no numbness, no tingling, no seizures, no syncope Psychiatric: no anxiety, no depression Endocrine: no cold intolerance, no polydipsia, no polyuria Exam - Constitutional Vitals: Temp Pulse Resp BP Pulse Ox 98.2 F 61 20 111/58 99 02/24/20 08:10 02/24/20 08:10 02/24/20 08:10 02/24/20 08:10 02/24/20 06:11 General appearance: Present: no acute distress, obese - EENT Eyes: Present: PERRL, EOM intact ENT: hearing intact, clear oral mucosa - Neck Neck: Present: other (Neck is stiff and range of motion is limited secondary to pain. She is able to move the neck sideways but flexion and extension are very painful.). Absent: rigidity - Respiratory Respiratory effort: normal Respiratory: bilateral: CTA - Cardiovascular Rhythm: regular Heart Sounds: Present: S1 & S2 - Extremities Extremities: No edema - Abdominal General gastrointestinal: Present: soft, non-tender. Absent: hepatomegaly, splenomegaly - Rectal Rectal Exam: deferred - Integumentary Integumentary: Present: clear - Musculoskeletal Musculoskeletal: strength equal bilaterally - Psychiatric Psychiatric: appropriate mood/affect - Neurologic Neurologic: CNII-XII intact, no focal deficits, moves all extremities Results - Labs CBC & Chem 7: 02/23/20 11:06 Assessment and Plan - Patient Problems (1) Neck pain Current Visit: Yes Status: Acute Plan to address problem: History and examination is suggestive of spasm of the C-spine muscles Most likely from the labor during the delivery of the baby No need for further work-up We will start the patient on topically anesthetic transdermal patch, Valium and [place] Continue ibuprofen Hopefully she should feel better in 1 to 2 days Thank you and will follow the patient as needed
[2020-02-24] MEDS: diazePAM 2 MG TAB PO SCH (16:52)
[2020-02-24] MEDS: LIDOCAINE 5% 1 EACH PATCH TD SCH (18:09)
[2020-02-25] MEDS: ACETAMINOPHEN 325 MG TAB PO PRN ×3 (01:48→20:34)
[2020-02-25] MEDS: diazePAM 2 MG TAB PO SCH ×2 (04:00→17:15)
--- NOTE | 2020-02-25 08:53 | Event Note ---
Date: 02/25/20 S: Still complaining of base in her neck right at the base of her skull. She states it started right after she delivered. She states that she had a headache too and once that felt better then she realized the pain in her neck was causing the headache. She was seen yesterday by Dr. Bernal and he ordered medication for her. She is requesting that she have an MRI of her neck before she is discharged. Dr. Fuller made aware of her request. O: BP WNL A: PPD #3, with C/O neck pain P: Dr. Fuller notified of continued pain in her neck and her request for MRI
--- NOTE | 2020-02-25 09:42 | Progress Note ---
Assessment and Plan - Patient Problems (1) Neck pain Current Visit: Yes Status: Acute Subjective Date of service: 02/25/20 Principal diagnosis: SROM Objective - Constitutional Vitals: Vital Signs - 12hr 02/24/20 02/25/20 23:52 07:54 Temperature 98.1 F 98.1 F Pulse Rate 78 65 Respiratory 20 18 Rate Blood Pressure 92/45 116/56 O2 Sat by Pulse 99 97 Oximetry - Labs CBC & Chem 7: 02/23/20 11:06
[2020-02-25] MEDS: HYDROcodone/ACETAMINOPHEN 5-325 MG TAB PO PRN ×3 (11:49→23:59)
[2020-02-25] MEDS: PRENATAL VIT27-FE FUMARATE-FOLIC ACID VIT TAB PO SCH (11:50)
[2020-02-25] MEDS: LIDOCAINE 5% 1 EACH PATCH TD SCH (12:26)
[2020-02-25] MEDS ORDERED: CYCLOBENZAPRINE 10 MG TAB PO PRN (14:36)
--- NOTE | 2020-02-25 14:40 | Event Note ---
Date: 02/25/20 Patient with persistent SWANSON/neck pain. Exam c/w MSK etiology. No focal deficits. Will attempt Dexamethasone 10mg IV and Flexiril 10mg po BID-TID prn. Will consider imaging if symptoms persist.
[2020-02-25] MEDS ORDERED: dexAMETHasone 20 MG/5 ML VIAL IV ONE (15:00)
--- NOTE | 2020-02-25 16:28 | Consultation ---
History of Present Illness Consult date: 02/25/20 Reason for Consult: Neck pain Chief complaint: Neck pain History of present illness: Patient is a 30 y/o woman w/ a h/o cigarette smoking, Vitamin D deficiency. She presented on 02/22/20 with spontaneous rupture of membranes. Patient delivered her child 3 days ago. She had an epidural during the . Patient began com plaining of neck pain with shooting pain to the arms. No weakness or numbness noted. She initially had a SWANSON after . SWANSON improved with medication, however she has persistent neck pain. She states that now she predominantly has neck pain, which is radiating to the occipital region. Pain is radiating to b/l UE, mostly in the shoulders. Denies visual changes, fever, numbness, weakness. Past History Past Medical History: other (Vitamin D deficiency) Past Surgical History: No surgical history Social history: single, smoking (current, every day), full code. denies: alcohol abuse, prescription drug abuse, IV drug use Family history: no significant family history Medications and Allergies Allergies Allergy/AdvReac Type Severity Reaction Status Date / Time Penicillins Allergy Swelling Verified 02/22/20 12:19 Sulfa (Sulfonamide Allergy Hives Verified 02/22/20 12:19 Antibiotics) Home Medications Medication Instructions Recorded Confirmed Last Taken Type Vitamin 1 tab PO DAILY 02/22/20 02/22/20 02/22/20 History Tylenol 2 tab PO PRN PRN 02/22/20 02/22/20 02/21/20 History Active Meds: Active Medications Acetaminophen (Tylenol) 650 mg PO Q4H PRN PRN Reason: Pain MILD(1-3)/Fever >100.5/SWANSON Last Admin: 02/25/20 07:06 Dose: 650 mg Documented by: Acetaminophen/Butalbital/Caffeine (Fioricet) 2 tab PO Q4H PRN PRN Reason: Headache Last Admin: 02/24/20 06:03 Dose: 2 tab Documented by: Acetaminophen/Hydrocodone Bitart ([place] 5/325) 1 each PO Q4H PRN PRN Reason: Pain, Moderate (4-6) Last Admin: 02/25/20 11:49 Dose: 1 each Documented by: Bisacodyl (Dulcolax) 10 mg [place] BID PRN PRN Reason: Constipation Butorphanol Tartrate (Stadol) 2 mg IV Q2H PRN PRN Reason: Labor Pain Last Admin: 02/22/20 15:10 Dose: 2 mg Documented by: Diazepam (Valium) 2 mg PO Q12H [facility] Stop: 02/26/20 15:59 Last Admin: 02/25/20 04:00 Dose: Not Given Documented by: Diphenhydramine HCl (Benadryl) 25 mg PO Q6H PRN PRN Reason: Itching Ephedrine Sulfate (Ephedrine Sulfate) 10 mg IV Q2M PRN PRN Reason: Hypotension Fentanyl (Sublimaze) 100 mcg IV Q2H PRN PRN Reason: Pain,Severe (7-10) LABOR PAIN Last Admin: 02/22/20 14:03 Dose: 100 mcg Documented by: Oxytocin/Sodium Chloride (Pitocin/Ns 20 Unit/1000ml Drip) 20 units in 1,000 mls @ 125 mls/hr IV DIRECT SO Last Admin: 02/22/20 20:06 Dose: 125 mls/hr Documented by: Lactated Ringer's (Lactated Ringers) 1,000 mls @ 125 mls/hr IV DIRECT SO Last Admin: 02/23/20 10:23 Dose: 125 mls/hr Documented by: Fentanyl/Bupivacaine/Sodium Chlor (Fentanyl-Bupiv 2 Mcg/Ml-0.125%) 200 mcg in 100 mls @ 12 mls/hr EPIDURAL TITR SO; Protocol Last Admin: 02/22/20 17:58 Dose: 12 mls/hr Documented by: Neostigmine Methylsulfate 2 mg / Atropine Sulfate 1 mg/Sodium Chloride 103 mls @ 206 mls/hr IV Q8H [facility] Last Admin: 02/24/20 06:04 Dose: 206 mls/hr Documented by: Ibuprofen (Ibuprofen) 600 mg PO Q6H SO Last Admin: 02/24/20 19:23 Dose: 600 mg Documented by: Lidocaine (Lidoderm 5%) 1 each TD QDAY [facility] Stop: 02/26/20 15:59 Last Admin: 02/25/20 12:26 Dose: Not Given Documented by: Magnesium Hydroxide (Milk Of Magnesia) 30 ml PO HS PRN PRN Reason: Constipation Methocarbamol (Robaxin) 750 mg PO Q8H PRN PRN Reason: Muscle Spasm Last Admin: 02/24/20 21:08 Dose: 750 mg Documented by: Mineral Oil (Mineral Oil) 30 ml PO QHS PRN PRN Reason: Constipation Misoprostol (Cytotec) 50 mcg PO Q4H PRN PRN Reason: Labor augmentation Last Admin: 02/22/20 13:54 Dose: 50 mcg Documented by: Multi-Ingredient Ointment (Lansinoh) 1 applic TP PRN PRN PRN Reason: Sore Nipples Multivitamins/Iron/Calcium ( Vitamin) 1 each PO QDAY SO Last Admin: 02/25/20 11:50 Dose: 1 each Documented by: Nalbuphine HCl (Nalbuphine) 10 mg IV Q2H PRN PRN Reason: Pain, Moderate (4-6) Naloxone HCl (Naloxone) 0.2 mg IV Q5M PRN PRN Reason: Respiratory sedation Ondansetron HCl (Zofran) 4 mg IV Q8H PRN PRN Reason: Nausea And Vomiting Promethazine HCl (Phenergan) 25 mg [place] Q6H PRN PRN Reason: Nausea And Vomiting Promethazine HCl (Phenergan) 25 mg PO Q6H PRN PRN Reason: Nausea And Vomiting Sodium Chloride (Sodium Chloride Flush Syringe 10 Ml) 10 ml IV PRN NR Stop: 02/25/20 19:59 Terbutaline Sulfate (Brethine) 0.25 mg SUB-Q ONCE PRN PRN Reason: Hyperstimulation/Hypertonicity Witch Kelsey/Glycerin (Tucks Pad) 1 each TP PRN PRN PRN Reason: Hemorrhoid/cleansing/soothing Last Admin: 02/22/20 21:52 Dose: 1 each Documented by: Review of Systems All systems: negative Neurological: other (Neck pain, SWANSON, radiating from neck to b/l shoulders.) Physical Examination - Vital Signs Vital Signs: Vital Signs Pulse Pulse Ox 91 H 98 02/22/20 12:12 02/22/20 12:12 - Physical Exam Narrative exam: Patient is alert, awake, oriented x4, follows complex commands. No dysarthria or aphasia noted. PERRL, EOMI, VFF, tongue midline, bilaterally intact to LT, no facial weakness noted. 5/5 strength in all extremities, however noted to have 4/5 strength in Rt. Hip flexors which is pain-limited due to right hip pain. Bilaterally intact light touch. Bilaterally intact to FTN and HTS. Patient noted to have worsened neck pain with flexion of neck which radiates to b/l shou lders. Noted to have tenderness in posterior neck and occipital region. Results - Laboratory Findings CBC and BMP: 02/23/20 11:06 Abnormal Lab Findings: Abnormal Labs 02/22/20 02/23/20 13:00 11:06 WBC 14.4 H Hgb 10.0 L Hct 29.3 L Assessment and Plan Patient is a 30 y/o woman w/ a h/o cigarette smoking, Vitamin D deficiency, who was admitted on 02/22/20 for . Patient c/o neck pain after . According to the patient's clinical findings, differential diagnosis includes cervical radiculopathy, muscle spasm, and occipital neuralgia. Given that pain radiates in b/l UE, would need to rule out cervical radiculopathy and myelopathy with MRI brain. Plan: 1. Neck pain: - Check MRI Cervical spine - If no evidence of radiculopathy or myelopathy, then would more likely be local muscle spasm or occipital neuralgia, which would be treated with muscle r elaxants or butalbital. - If found to have cervical spine pathology, would need to be addressed acco rdingly. - Would recommend for patient to follow up with neurology as outpatient, as she may benefit from occipital nerve block for possible occipital neuralgia, if pain continues to persist. - Will sign off, as I am not covering neurology service over the weekend. Please consult neurologist covering the service over the weekend for further neurologic monitoring and management, if felt to be necessary by primary team. If in-house neurologist is not available, recommend transferring patient to [facility] where neurology service is available for further management. Thank you for allowing me to take part in the care of this patient. Prince Lee MD Neurology This clinical encounter was provided via live telemedicine platform. Consultative service was provided for neurology to support local providers. The Acute Teleneurology team should be contacted with any neurologic worsening or c linical changes, new test results, or new patient history that is reported to or discovered by the local team following completion of the teleneurology consultation, specifically that which has the potential to impact the consultative recommendations. Patient/Family was informed the Neurology Consult would happen via TeleHealth consult by way of interactive audio and video telecommunications and consented to receiving care in this manner. Due to the potential for life-threatening deterioration due to underlying neurologic illness, and limited resources available for patient care, telemedicine was used as means of patient care. Telemedicine consultation is limited in the extent of physical exam that can be virtually provided. Time spent evaluating patient includes time for face to face visit via telemedicine, review of medical records, imaging studies and discussion of findings with pro viders, the patient and/or family.
[2020-02-26] MEDS: WITCH HAZEL/ GLYCERIN PAD TP PRN (00:50)
[2020-02-26] MEDS: diazePAM 2 MG TAB PO SCH (04:00)
[2020-02-26] MEDS: ACETAMINOPHEN 325 MG TAB PO PRN ×3 (04:22→20:29)
[2020-02-26] MEDS: PRENATAL VIT27-FE FUMARATE-FOLIC ACID VIT TAB PO SCH (10:05)
--- NOTE | 2020-02-26 10:47 | Magnetic Resonance Report ---
MRI CERVICAL SPINE WITHOUT CONTRAST INDICATION / CLINICAL INFORMATION: postoperative neck pain with radiation. TECHNIQUE: Multisequence, multiplanar images of the cervical spine were obtained. COMPARISON: None available. FINDINGS: CRANIOCERVICAL JUNCTION:No significant abnormality. ALIGNMENT: No significant abnormality. VERTEBRAE:Normal marrow signal and vertebral body height for age. VISUALIZED SPINAL CORD: There is fluid in the dorsal epidural space. There is no associated significa nt cord impingement or spinal cord narrowing. This is extending into the visualized upper thoracic sp ine. This measures up to 5 mm in greatest dimension in the sagittal plane. UNNVO-AO-CRDCM ANALYSIS: C2-3: No significant disc abnormality, spinal canal stenosis, or neural foraminal stenosis. C3-4: No significant disc abnormality, spinal canal stenosis, or neural foraminal stenosis. C4-5: No significant disc abnormality, spinal canal stenosis, or neural foraminal stenosis. C5-6: There is a broad-based disc osteophyte complex causing mild canal stenosis without cord impinge ment. C6-7: No significant disc abnormality, spinal canal stenosis, or neural foraminal stenosis. C7-T1: No significant disc abnormality, spinal canal stenosis, or neural foraminal stenosis. PARASPINAL SOFT TISSUES: No significant abnormality. ADDITIONAL FINDINGS: None. IMPRESSION: 1. Abnormal fluid accumulation in the dorsal epidural space in the cervical spine extending into the upper thoracic spine. No associated significant mass effect or cord signal abnormality. Follow-up cer vical spine MRI with contrast is recommended to evaluate for any enhancement. Thoracic spine MRI with out and with contrast also recommended to evaluate the thoracic spine. Signer Name: Dandre Mccullough MD Signed: 02/26/2020 10:42 AM Workstation Name: [email or web address]
--- NOTE | 2020-02-26 13:07 | Progress Note ---
Assessment and Plan - Patient Problems (1) Neck pain Current Visit: Yes Status: Acute Plan to address problem: --MRI without compression/mass effect. Small fluid collection, unlikely blood or pus, favor CSF after discussion with (2) SROM (spontaneous rupture of membranes) Current Visit: Yes Status: Acute Plan to address problem: --Meeting goals --Dispo pending neck pain management Subjective - Subjective Date of service: 02/26/20 Principal diagnosis: SROM Interval history: Patient meeting goals. Reports that she still have persistent neck pain, not improved with current regimen. S/p MR spine today AM with benign results. Patient reports: appetite normal, voiding normally, flatus, ambulating normally Slemp: doing well Objective - Vital Signs Latest vital signs: Vital Signs Temp Pulse Resp BP BP Pulse Ox 02/26/20 07:50 97.8 F 55 L 18 118/50 95 02/26/20 01:37 98.9 F 69 18 107/67 97 02/25/20 17:49 98.7 F 67 20 137/71 97 Intake and Output 02/25/20 02/26/20 02/26/20 23:59 07:59 15:59 Intake Total 240 480 Balance 240 480 Intake: Oral 240 Intake, Free Water 480 Other: Total, Intake Amount 240 # Voids Void 1 1 - Exam Abdomen: Present: normal appearance, other (fundus firm)
[2020-02-26] MEDS ORDERED: CYCLOBENZAPRINE 10 MG TAB PO PRN (13:11)
[2020-02-26] MEDS: HYDROcodone/ACETAMINOPHEN 5-325 MG TAB PO PRN (13:18)
--- NOTE | 2020-02-26 13:24 | Event Note ---
Date: 02/26/20 Spoken with Radiology regarding MR result. NO abnormalities. Fluid collection most likely 2/2 recent epidural. After discussion with patient, she reports that neck pain improved with relaxation. Favor MSK etiology for pain. Will treat with Flexeril per Neurology recommendations. Will assess patient in late afternoon/evening for possible dispo.
--- NOTE | 2020-02-26 13:47 | Progress Note ---
Assessment and Plan -- Neck pain History and examination is suggestive of spasm of the C-spine muscles Cervical spine MRI showed NO abnormalities. Fluid collection most likely 2/2 recent epidural. she reports that neck pain improved with relaxation. Continue to treat with Flexeril per Neurology recommendations. Hopefully she should feel better in 1 to 2 days Thank you and will follow the patient as needed Subjective Date of service: 02/26/20 Principal diagnosis: SROM Interval history: Vitals noted patient has no new complaint today MRI result noted planned for discharge today Objective - Exam Narrative Exam: General appearance: Present: no acute distress, obese - EENT Eyes: Present: PERRL, EOM intact ENT: hearing intact, clear oral mucosa - Neck Neck: Present: Absent: rigidity - Respiratory Respiratory effort: normal Respiratory: bilateral: CTA - Cardiovascular Rhythm: regular Heart Sounds: Present: S1 & S2 - Extremities Extremities: No edema - Abdominal General gastrointestinal: Present: soft, non-tender. Absent: hepatomegaly, splenomegaly - Rectal Rectal Exam: deferred - Integumentary Integumentary: Present: clear - Musculoskeletal Musculoskeletal: strength equal bilaterally - Psychiatric Psychiatric: appropriate mood/affect - Neurologic Neurologic: CNII-XII intact, no focal deficits, moves all extremities - Constitutional Vitals: Vital Signs - 12hr 02/26/20 07:50 Temperature 97.8 F Pulse Rate 55 L Respiratory 18 Rate Blood Pressure 118/50 [Right] O2 Sat by Pulse 95 Oximetry - Labs CBC & Chem 7: 02/23/20 11:06
--- NOTE | 2020-02-26 14:05 | Progress Note ---
Assessment and Plan A: day 4 S/P . Neck pain, probably MSK in origin. Anemia. P: If Flexeril relieves pain, anticipate discharge later this evening. Oral iron supplementation. Spoke with MD regarding this patient. Subjective - Subjective Date of service: 02/26/20 Principal diagnosis: day 4 S/P Interval history: day 4 S/P . Has had neck pain since delivery; MRI showed no abnormalities. Patient has been started on Flexeril. Patient doing well otherwise. Patient reports: appetite normal, voiding normally, pain well controlled, flatus, ambulating normally, no dizzy ambulation, no nauseated : doing well Objective - Vital Signs Latest vital signs: Vital Signs Temp Pulse Resp BP BP Pulse Ox 02/26/20 07:50 97.8 F 55 L 18 118/50 95 02/26/20 01:37 98.9 F 69 18 107/67 97 02/25/20 17:49 98.7 F 67 20 137/71 97 Intake and Output 02/25/20 02/26/20 02/26/20 23:59 07:59 15:59 Intake Total 240 480 Balance 240 480 Intake: Oral 240 Intake, Free Water 480 Other: Total, Intake Amount 240 # Voids Void 1 1 - Exam Cardiovascular: Present: Regular rate, Normal S1, Normal S2, No murmurs Lungs: Present: Clear to auscultation Abdomen: Present: normal appearance, soft. Absent: distention, tenderness, guarding, rigidity Uterus: Present: normal, firm, fundal height below umbilicus. Absent: bogginess, tenderness Extremities: Present: normal. Absent: tenderness, edema
[2020-02-26] MEDS ORDERED: FERROUS SULFATE 325 MG TAB PO SCH (15:00)
[2020-02-26] MEDS: IBUPROFEN 600 MG TAB PO SCH (15:52)
[2020-02-26] MEDS: LIDOCAINE 5% 1 EACH PATCH TD SCH (15:52)
[2020-02-26 17:41] VITALS: BP 114/66
--- NOTE | 2020-02-26 18:48 | Discharge Summary ---
Providers - Providers Date of Admission: 02/22/20 11:48 Date of discharge: 02/26/20 Attending physician: JENNIFER CEDILLO 02/24/20 13:35 Consult to Physician [CONS] Routine Comment: Consulting Provider: MARIAM ARITA Physician Instructions: Reason For Exam: neck pain 02/25/20 09:40 Consult to Physician [CONS] Routine Comment: Consulting Provider: RUFINO SEAY Physician Instructions: Reason For Exam: neck pain Primary care physician: SAM UMANA MD Hospitalization Reason for admission: rupture of membranes Delivery: Episiotomy: none Laceration: 1st degree Other procedures: none complications: none Discharge diagnosis: IUP at term delivered baby: female Pertinent studies: Labs Hospital course: Stable hospital course. Condition at discharge: Good Disposition: DC-01 TO HOME OR SELFCARE - Discharge Diagnoses (1) Term delivered Status: Acute Plan - Provider Discharge Summary Activity: routine, no sex for 6 weeks, no heavy lifting 4 weeks, no strenuous exercise Diet: routine Instructions: routine Additional instructions: Continue taking your vitamins and iron supplements at home. Follow up at [facility] on Friday02/28/2020. Call your doctor immediately for: * Fever > 100.5 * Heavy vaginal bleeding ( >1 pad per hour) * Severe persistent headache * Shortness of breath * Reddened, hot, painful area to leg or breast - Follow up plan Follow up: SAM UMANA MD [Primary Care Provider] - 02/28/20 Forms: [facility] Discharge Summary
== END 2020-02-26 20:40 | disposition home or self-care (01) | DRG 774 ==
LOC: LD 11:48 → OB 20:59
PROVIDERS: ADMIT Obstetrics & Gynecology; ATTEND Obstetrics & Gynecology
PROC: 10E0XZZ Delivery of Products of Conception, External Approach (ICD-10-PCS; principal; 2020-02-22)
PROC: 3E0P7VZ Introduction of Hormone into Female Reproductive, Via Natural or Artificial Opening (ICD-10-PCS; 2020-02-22)
PROC: 3E0R3BZ Introduction of Anesthetic Agent into Spinal Canal, Percutaneous Approach (ICD-10-PCS; 2020-02-22)
PROC: 00HU33Z Insertion of Infusion Device into Spinal Canal, Percutaneous Approach (ICD-10-PCS; 2020-02-22)
PROC: 0HQ9XZZ Repair Perineum Skin, External Approach (ICD-10-PCS; 2020-02-22)
PROC: 3E0234Z Introduction of Serum, Toxoid and Vaccine into Muscle, Percutaneous Approach (ICD-10-PCS; 2020-02-23)
DX: O42.92 Full-term premature rupture of membranes, unspecified as to length of time between rupture and onset of labor (principal); O74.5 Spinal and epidural anesthesia-induced headache during labor and delivery; Z37.0 Single live birth; E66.9 Obesity, unspecified; O99.214 Obesity complicating childbirth; O99.334 Smoking (tobacco) complicating childbirth; F17.210 Nicotine dependence, cigarettes, uncomplicated; Z88.0 Allergy status to penicillin; Z88.2 Allergy status to sulfonamides; O99.284 Endocrine, nutritional and metabolic diseases complicating childbirth; E55.9 Vitamin D deficiency, unspecified; E11.9 Type 2 diabetes mellitus without complications; O16.4 Unspecified maternal hypertension, complicating childbirth; O99.824 Streptococcus B carrier state complicating childbirth; O70.0 First degree perineal laceration during delivery; O75.89 Other specified complications of labor and delivery; M54.2 Cervicalgia; O90.81 Anemia of the puerperium; D64.9 Anemia, unspecified; Z3A.37 37 weeks gestation of pregnancy; Z23 Encounter for immunization
CPT/HCPCS: 36415; 72141; 85014; 85018; 85027; 86850; 86900; 86901; G0378; J0461; J0595; J0690; J1100; J2405; J2590; J2710; J3010; J7120